=== PATIENT | female | born 1995 | race Caucasian/White ===

== ENCOUNTER 2016-10-03 12:24 | Emergency (ER) | payer OTHER ==
[~2016-10-03] VITALS: Ht 162.6 cm; Wt 90.7 kg
[~2016-10-03 12:24] MED LIST: ALBUTEROL1.25 MG/3 INH/SOL; AMOXIL 875 MG875 MG PO; BACTRIM DS 8001 TAB PO; DASETTA 1/35 351 TAB PO; DESOGESTREL PO; DIFLUCAN150 MG PO; ETHINYL ESTRADIOL PO; FLEXERIL10 MG PO; FLONASE ALLERG9.9 ML NAS; KEFLEX500 MG PO; MEDROL DOSEPAK1 PAC PO; MEDROL4 M2 PO; MOTRIN800 MG PO; NASONEX0.05 MG/Ac NS; NORTREL PO; NOVAPLUS V0.09 MG/Ac INH; PREDNISONE 20MG20 MG PO; PREDNISONE20 M1 PO; PYRIDIUM100 MG PO; ROBITUSSIN W/CO10 ML PO; TESSALON PERLE100 M1 PO; TESSALON PERLE100 MG PO; ZITHROMAX Z-PA250 M1 PO
[2016-10-03] MEDS ORDERED: LO LOESTRIN FE1 EACH PO (12:48)
--- NOTE | 2016-10-03 13:23 | ED HAND/WRIST INJURY COMPLAINT ---
History of Present Illness General Chief Complaint: Hand or Wrist Injury Stated Complaint: 4TH DIGIT ON LEFT HAND PAIN, S/P FALL Source: patient Exam Limitations: no limitations Vital Signs & Intake/Output Vital Signs & Intake/Output Vital Signs Date Time Temp Pulse Resp B/P B/P Pulse O2 O2 Flow FiO2 Mean Ox Delivery Rate 10/03 1342 98.7 90 20 130/80 98 Room Air 10/03 1228 98.4 99 18 129/87 98 Room Air Allergies Coded Allergies: NO KNOWN ALLERGIES (09/20/15) Reconcile Medications Hydrocodone/Acetaminophen (Hydrocodon-Acetaminophen 5-325) 5 MG-325 MG TABLET 1-2 TAB PO Q4-6 PRN PRN pain Ibuprofen 800 MG TABLET 1 TAB PO TID pain Norethindrone-E.estradiol-Iron (Lo Loestrin Fe 1-10 Tablet) 1MG-10(24) TABLET 1 TAB PO DAILY bc (Reported) Triage Note: 21 Y/O FEMALE C/O PAIN/SWELLING TO L 4TH FINGER S/P FALL TODAY. DENIES ANY OTHER INJURIES OR COMPLAINTS. Triage Nurses Notes Reviewed? yes Duration: day(s): (last night), constant, continues in ED Severity: moderate, severe Pain/Injury Location: Left: 4th finger. Method of Injury: fall No Modifying Factors: none : No Patient currently breastfeeds: No HPI: 21-year-old female comes into emergency room for further evaluation left forth finger pain. Patient fell. Came down on her left finger. Swelling /pain. Sharp pain. Continuous. Nonradiating. Denies any other associated symptoms. Past History Travel History Traveled to [place] past 21 day No Medical History Any Pertinent Medical History? see below for history Neurological: NONE EENT: NONE Cardiovascular: NONE Respiratory: asthma, bronchitis Gastrointestinal: NONE Hepatic: NONE Renal: NONE Musculoskeletal: NONE Psychiatric: NONE Endocrine: NONE Blood Disorders: NONE Cancer(s): NONE PATROL SERGEANT/Reproductive: NONE Surgical History Surgical History: non-contributory, N Psychosocial History What is your primary language Beninese Tobacco Use: Current Daily Use Daily Tobacco Use Amount/Type: => 5 Cigarettes daily Family History Hx Contributory? No Review of Systems Review of Systems Constitutional: Reports: no symptoms. EENTM: Reports: no symptoms. Respiratory: Reports: no symptoms. Cardiovascular: Reports: no symptoms. GI: Reports: no symptoms. Genitourinary: Reports: no symptoms. Musculoskeletal: Reports: see HPI. Skin: Reports: no symptoms. Neurological/Psychological: Reports: no symptoms. Hematologic/Endocrine: Reports: no symptoms. Immunologic/Allergic: Reports: no symptoms. All Other Systems: Reviewed and Negative Physical Exam Physical Exam General Appearance: well developed/nourished, mild distress Head: atraumatic Eyes: Bilateral: normal appearance. Ears, Nose, Throat: normal ENT inspection, hearing grossly normal Neck: normal inspection Cardiovascular/Respiratory: no respiratory distress Back: normal inspection Hand Left: bone tenderness, ecchymosis, swelling, tender, 4th finger Hand Right: normal inspection Neurologic/Tendon: normal sensation, normal motor functions, normal tendon functions, responds to pain, no evidence tendon injury, no pulse deficit Skin: intact, normal color, warm/dry Lymphatic: no anterior cervical jd Progress Differential Diagnosis: dislocation, felon, fracture, gout, paronychia, septic arthritis, sprain Plan of Care: Orders Procedure Date/time Status XRY-FINGERS, LEFT 10/03 1229 Active Diagnostic Imaging: Viewed by Me: Radiology Read. Discussed w/RAD: Radiology Read. Radiology Impression: SERVICE DATE: 10/03/16 EXAM TYPE: RAD - XRY-FINGERS , LEFT EXAMINATION: XR FINGER, LEFT CLINICAL INFORMATION: Pain and swelling status post fall. COMPARISON: None TECHNIQUE: A single view of the left hand and 2 views of the left fourth finger are provided. FINDINGS: There is an nondisplaced oblique fracture involving the [id number] shaft of the left fourth middle phalanx without evidence of intra-articular extension. IMPRESSION: Left fourth middle phalanx fracture. DICTATED BY: RICCI LIMON MD DATE/TIME DICTATED:10/03/161303 SHUTTLECOCK ASSEMBLER:RICHARD DATE/TIME TRANSCRIBED:1303 Departure Departure Disposition: HOME OR SELF CARE Condition: Stable Clinical Impression Primary Impression: Fracture of finger, middle phalanx, closed Referrals: UNKNOWN (PCP/Family) Additional Instructions: Take Vicodin and ibuprofen as prescribed. Follow-up with plastic surgeon provided. Stay in finger splint until follow-up. Return if any concerns worsening symptoms. Please go over all results of today's visit with your primary care doctor. Contact your primary care doctor to let them know you were here in the emergency room. There may be nonspecific findings which may not be related to your visit today here in the emergency room but may require further evaluation and chronic monitoring by your primary care doctor. If you had a laceration today the chance of foreign body always remains. You should follow-up with your primary care doctor for recheck in 3-5 days for a wound check. If you had an x-ray done there is a chance that a fracture could have been missed on initial read and you should follow-up with your primary care doctor for repeat x-rays if symptoms persist. If your blood pressure was elevated here in the emergency room please have rechecked by her primary care doctor within the next 48 hours by your primary care doctor. If you were prescribed a narcotic here in the emergency room or any type of controlled substances you're not allowed to drive while taking this medication or operate any type of heavy machinery. Narcotics can make you feel lightheaded dizziness nausea and can cause constipation. You may need to pecan picker a stool softener. Thank you for choosing [facility] emergency room. Please return to the emergency room immediately if you have any other concerns worsening of symptoms. Departure Forms: Customer Survey General Discharge Information Prescriptions: Current Visit Scripts Hydrocodone/Acetaminophen (Hydrocodon-Acetaminophen 5-325) 1-2 TAB PO Q4-6 PRN PRN pain #15 TAB Ibuprofen 1 TAB PO TID #30 TAB Comments 10/03/2016 2:15:27 PM Patient clinically looks well. Patient was referred to plastic surgery. Dr. Teixeira's information was handwritten down on the paperwork. Patient understands agrees with plan of care. Return if any other concerns. Procedures Splinting Location: left fourth finger Pre-Made Type: metal Splint: finger splint Splint Applied By: splint applied by me Pre-Proc Neuro Vasc Exam: normal Post-Proc Neuro Vasc Exam: normal
[2016-10-03] MEDS ORDERED: IBUPROFEN800 M1 PO (13:26)
[2016-10-03] MEDS ORDERED: HYDROCODON-ACE1 EAC2 PO (13:26)
--- NOTE | 2016-10-03 13:37 | RADIOLOGY REPORT ---
EXAMINATION: XR FINGER, LEFT CLINICAL INFORMATION: Pain and swelling status post fall. COMPARISON: None TECHNIQUE: A single view of the left hand and 2 views of the left fourth finger are provided. FINDINGS: There is an nondisplaced oblique fracture involving the [id number] shaft of the left fourth middle phalanx without evidence of intra-articular extension. IMPRESSION: Left fourth middle phalanx fracture.
[2016-10-03 13:42] VITALS: BP 130/80
== END 2016-10-03 13:42 ==
LOC: ERH 12:24
DX: S62.625A Displaced fracture of middle phalanx of left ring finger, initial encounter for closed fracture (principal); W19.XXXA Unspecified fall, initial encounter; Y92.9 Unspecified place or not applicable; Y93.9 Activity, unspecified
CPT/HCPCS: 73140-LT

== ENCOUNTER 2017-10-20 18:25 | Inpatient (IN) | payer OTHER ==
[~2017-10-20] VITALS: Ht 162.6 cm; Wt 92.7 kg
[~2017-10-20 18:25] MED LIST changes: +DASETTA 1-35-21 EACH PO; +DIAZEPAM5 M1 PO; +GABAPENTIN300 M2 PO; +HYDROCODON-ACE1 EAC2 PO; +IBUPROFEN800 M1 PO; +LO LOESTRIN FE1 EACH PO; +NICOTINE PATCH1 EAC2 TOP; +SERTRALINE HCL50 MG PO
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
[2017-10-21 02:46] LABS: ABSOLUTE BASOPHIL COUNT 0 /CUMM (0.0-0.2); ABSOLUTE EOSINOPHIL COUNT 0.1 /CUMM (0.0-0.7); ABSOLUTE GRANULOCYTE CT 3.6 /CUMM (1.4-6.5); ABSOLUTE LYMPH COUNT 3.4 /CUMM (1.2-3.4); ABSOLUTE MONOCYTE COUNT 0.6 /CUMM (0.10-0.60); BASOPHIL % 0.4 % (0.0-2.0); EOSINOPHIL % 1.5 % (0-5); GRANULOCYTE % 46.3 % (42.2-75.2); HEMATOCRIT 42.6 % (37-47); MEAN CORPUSCULAR HGB 29.7 PG (27.0-31.0); MEAN CORPUSCULAR HGB CONC 33.3 G/DL (33.0-37.0); MEAN PLATELET VOLUME 8.5 FL (7.4-10.4); PLATELET COUNT 267 /CUMM (130-400); RBC DISTRIBUTION WIDTH 14.5 % (11.5-14.5); RED BLOOD CELL CT 4.79 /CUMM (4.20-5.40); WHITE BLOOD CELL COUNT 7.8 /CUMM (4.8-10.8)
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
[2017-10-21 21:48] VITALS: BP 117/69
[2017-10-22] VITALS (7 sets, daily range): BP systolic 126–144; BP diastolic 83–94
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
--- NOTE | 2017-10-22 13:58 | History & Physical ---
General Information and HPI MD Statement: I have seen and personally examined KELECHI LAWRENCE and documented this H&P. The patient is a 22 year old F who presented with a patient stated chief complaint of [ suicidal ideation]. Source of Information: patient, EMS Exam Limitations: no limitations History of Present Illness: 22 yr old female with pmh of suidical ideation and attmept with last admission in Mar 2017 for suicidal attempt was brought to the ED for cuts to her left wrist which required sutures. Pt is [facility] for further management. Pt currently denies any suicidal ideation . Smokes cigs 1 PPD. Not willing to quit. Drinks alcohol occasionally. Denies any HTN, DM, HLD. Denies any sexually transmitted disease history. 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 FATHER (NONE). Psychosocial History Services at Home: None Primary Language: French ETOH Use: alcoholic Functional Ability Ambulation: independent Employment History Employment Employed Profession/Employer pt reports at [employer] Review of Systems Review of Systems Constitutional: Reports: see HPI. Denies: chills, fever. EENTM: Denies: eye pain. Cardiovascular: Denies: chest pain, palpitations. Respiratory: Denies: cough, short of breath. GI: Denies: abdominal pain. Genitourinary: Denies: dysuria. Musculoskeletal: Denies: back pain. Neurological/Psychological: Reports: see HPI. Exam & Diagnostic Data Last 24 Hrs of Vital Signs/I&O Vital Signs Date Time Temp Pulse Resp B/P B/P Pulse O2 O2 Flow FiO2 Mean Ox Delivery Rate 10/22 1226 99 144/89 10/22 1213 99 144/89 10/22 0732 97.0 96 126/83 10/21 2148 98.1 98 117/69 10/21 2055 97.2 93 18 125/69 97 10/21 1432 98.0 89 18 104/58 100 Room Air Intake & Output 10/22 1600 10/22 0800 10/22 0000 Intake Total Output Total Balance Patient 92.703 kg Weight Physical Exam General Appearance Alert, Oriented X3, Cooperative, No Acute Distress Skin Has cut on left wrist with sutures HEENT Atraumatic, EOMI Neck Supple Cardiovascular Regular Rate, Normal S1, Normal S2 Lungs Clear to Auscultation, Normal Air Movement Abdomen Soft, No Tenderness Neurological Exam Findings: Normal Gait, Normal Speech Cranial Nerves II through XII: INtact Extremities No Cyanosis, No Edema Assessment/Plan Assessment: Suicidla ideation and attempt- management as per psychiatry. Nicotine dependence- counselled pt to quit smoking. not motivated to quit at present. Cont nicotine patch. As Ranked By This Provider Problem List: 1. Suicidal behavior 2. Suicidal ideation 3. Self mutilating behavior 4. Laceration Miscellaneous Miscellaneous Documentation Attending Case Discussed With: Eva ARAYA,Guillaume Primary Care Physician: Jordyn Márquez APRN Patient sees these Specialists none Level of Patient Care: [facility]
--- NOTE | 2017-10-22 17:41 | SOCIAL WORKER PROG NOTE PSYCH ---
Social Work Progress Note Progress Note This pattern chart writer met with patient. She discussed events leading to admission in which she was drinking with friends and then took an unprescribed Xanax due to her anxiety. She stated that she cut herself to relieve the stress, however, adamently denies that it was a suicide attempt. Patient stated that she last cut when she was 15. Patient reported weekly alcohol use (3 beers each time) and MJ use of three times per week, "about a 1/2 a bowl each time." Patient stated that she does not feel she needs rehab. She stated that she is not interested in IOP due to her work schedule and would prefer individual therapy and medication management. She is agreeable to group therapy through [facility]. Patient denied SI/HI/AH/VH.
[2017-10-23] VITALS (7 sets, daily range): BP systolic 124–144; BP diastolic 66–79
--- NOTE | 2017-10-23 10:20 | SOCIAL WORKER PROG NOTE PSYCH ---
Social Work Progress Note Progress Note The services requested require additional review. You will be contacted regarding the status of this request if further information is needed. An authorization decision will be made within the required timeframes and details of that decision may be found under the member's authorization history. Member Name Member ID Member Subscriber Name Subscriber ID KELECHI LAWRENCE [id number] 1995 KELECHI LAWRENCE [id number] Pended Authorization # Client Authorization # Type of Request [id number] CONCURRENT Date of Admission/ Start of Services Requested From Submission Date 10/21/2017 10/24/2017 10/23/2017 Level of Service Type of Service Level of Care Type of Care INPATIENT/HLOC Mental Health Inpatient Inpatient [facility] - Inpatient Hospital Reason Code P76 Provider Name & Address Provider ID Provider Alternate ID NPI # for Authorization TANI LEVIN [id number] N/A [address] [facility] [id number]
--- NOTE | 2017-10-23 15:40 | CP SOUTH PROGRESS NOTE PSYCH ---
Psych (Inpt) Progress Note Progress Note Include the following elements, when applicable: Involvement in the active treatment of the patient with behavioral observations of the patient and the patient's response to the treatment. Review of the ongoing treatment process in the context of the treatment plan. Indication of how multi-disciplinary staff members are carrying out the treatment plan. Plans for future interventions and recommendations for revision of the treatment plan. Liaison with other physicians/providers. Progress Note: Case and treatment plan discussed in team meeting. Staff reports that the patient is denying suicidal ideation. Described as chatty. Socializes with a male peer. Minimizes. Patient seen at 10:42 AM. She was in group prior to meeting with me in office. States "I'm pretty good." Reports there has been no change and states she is still happy and is feeling good. Reports she had a nice visit with her mother and mother's visit made her feel better. Patient wants consistent outpatient therapy. She is optimistic about it. Affect is calm and euthymic. Reports mood is really good. Rates sad mood and anxiety both 0/10 but she reports that she misses cigarettes. Denies feeling hopeless, helpless, worthless or guilty. Denies active and passive suicidal ideation. Denies homicidal ideation. Denies auditory and visual hallucinations and paranoid ideation. States she slept well but claims she is drinking too much coffee. Reports appetite is good and energy is good. Tolerating medications well. I advised her that it will take weeks for Zoloft to become fully effective. IMPRESSION: Slow progress. Continue present treatment plan. A family meeting will be important. Hopefully patient will agree to go to an IOP. Anticipate likely discharge by Thursday next week.
--- NOTE | 2017-10-23 18:06 | SOCIAL WORKER PROG NOTE PSYCH ---
Social Work Progress Note Progress Note This copy writer met with patient. She reported "good" mood and denied SI/HI/AH/VH. Patient maintains interest in individual therapy and, upon reviewing a list of providers, she signed an JO-ANN for [facility] as their location is convenient for her. Patient was also agreeable to a family meeting with her mother. We called her mother and a meeting is scheduled for 10/26/17 at 2pm. This copy writer has also left a vm for [facility] inquiring about their referral process. A call back number was provided. As discussed with the patient yesterday and the treatment team, a OPS appointment will be scheduled for intake, medication management and her interest in outpatient group therapy.
[2017-10-24] VITALS (7 sets, daily range): BP systolic 121–138; BP diastolic 70–78
--- NOTE | 2017-10-24 11:36 | CP SOUTH PROGRESS NOTE PSYCH ---
Psych (Inpt) Progress Note Progress Note Include the following elements, when applicable: Involvement in the active treatment of the patient with behavioral observations of the patient and the patient's response to the treatment. Review of the ongoing treatment process in the context of the treatment plan. Indication of how multi-disciplinary staff members are carrying out the treatment plan. Plans for future interventions and recommendations for revision of the treatment plan. Liaison with other physicians/providers. Progress Note: Pt notes good mood today. She had some difficulties with sleep as near the RN station but feels that wants no change in sleep meds. Feeling hopeful about the future. Denies SI or HI. No issues with sertraline 50mg. Current Medications Sig/Sayra Start time Last Medication Dose Route Stop Time Status Admin Acetaminophen 650 MG Q6P PRN 10/22 1045 AC PO Al Hydroxide/Mg 30 ML Q4-6 PRN PRN 10/22 1045 AC Hydroxide PO Benztropine Mesylate 1 MG Q6P PRN 10/22 1045 AC PO Benztropine Mesylate 1 MG Q6P PRN 10/22 1045 AC IM Folic Acid 1 MG DAILY 10/22 1152 DC 10/24 PO 10/24 0901 1047 Gabapentin 300 MG Q6P PRN 10/22 1045 AC PO Haloperidol 5 MG Q6P PRN 10/22 1045 AC PO Haloperidol 5 MG Q6P PRN 10/22 1045 AC IM Lorazepam 2 MG Q2P PRN 10/22 1200 AC PO Lorazepam 1 MG Q2P PRN 10/22 1200 AC PO Lorazepam 2 MG Q6P PRN 10/22 1045 AC IM Magnesium Hydroxide 30 ML AT BEDTIME PRN 10/22 1045 AC PO Multivitamins 1 TAB DAILY 10/22 1152 AC 10/24 PO 1047 Nicotine 21 MG DAILY 10/24 1113 AC TOP Nicotine 14 MG DAILY 10/22 1038 DC 10/24 TOP 1047 Patient Own 1 UNIT DAILY 10/23 0900 AC 10/24 Medication PO 1048 Sertraline HCl 100 MG DAILY 10/25 0900 AC PO Sertraline HCl 50 MG DAILY 10/22 1439 DC 10/24 PO 1047 Thiamine HCl 100 MG DAILY 10/22 1152 DC 10/24 PO 10/24 0901 1047 Trazodone HCl 50 MG AT BEDTIME NEED.. 10/22 1045 AC PO Vital Signs Date Time Temp Pulse Resp B/P B/P Pulse O2 O2 Flow FiO2 Mean Ox Delivery Rate 10/25 755 97.5 84 125/73 10/24 0755 97.3 84 125/73 10/23 1940 97.7 70 144/66 10/23 1558 75 124/68 10/23 1557 75 124/68 10/23 1226 76 131/76 10/23 1225 76 131/76 MSE General appearance: good hygiene and grooming; Attitude: cooperative; Eye contact: appropriate; Movement: no psychomotor agitation or slowing; Speech: nl fluency, nl rate/rhythm, nl volume, nl prosody; Mood: "good" Affect: very slightly irritable, flat, appropriate, constricted, non-labile, congruent; Thought process: linear and goal-directed; Thought content: denied SI or HI, no paranoid ideation; Perception: denied hallucinations- auditory, visual, does not appear to be responding to internal stimuli; I/J: limited A/P: Pt with Bipolar disorder, PTSD with improving mood. - Increase sertraline to 100mg daily -Continue current medication regimen -Encourage integration into the milieu
[2017-10-25 07:45] VITALS: BP 122/81
[2017-10-25 07:53] VITALS: BP 122/81
--- NOTE | 2017-10-25 11:48 | CP SOUTH PROGRESS NOTE PSYCH ---
Psych (Inpt) Progress Note Progress Note Include the following elements, when applicable: Involvement in the active treatment of the patient with behavioral observations of the patient and the patient's response to the treatment. Review of the ongoing treatment process in the context of the treatment plan. Indication of how multi-disciplinary staff members are carrying out the treatment plan. Plans for future interventions and recommendations for revision of the treatment plan. Liaison with other physicians/providers. Progress Note: Pt notes poor sleep today. Does not like her roomate. She denies SI or HI. Very irritable today. Current Medications Sig/Sayra Start time Last Medication Dose Route Stop Time Status Admin Acetaminophen 650 MG Q6P PRN 10/22 1045 AC PO Al Hydroxide/Mg 30 ML Q4-6 PRN PRN 10/22 1045 AC Hydroxide PO Benztropine Mesylate 1 MG Q6P PRN 10/22 1045 AC PO Benztropine Mesylate 1 MG Q6P PRN 10/22 1045 AC IM Gabapentin 300 MG Q6P PRN 10/22 1045 AC PO Haloperidol 5 MG Q6P PRN 10/22 1045 AC PO Haloperidol 5 MG Q6P PRN 10/22 1045 AC IM Lorazepam 2 MG Q2P PRN 10/22 1200 DC PO Lorazepam 1 MG Q2P PRN 10/22 1200 DC PO Lorazepam 2 MG Q6P PRN 10/22 1045 AC IM Magnesium Hydroxide 30 ML AT BEDTIME PRN 10/22 1045 AC PO Multivitamins 1 TAB DAILY 10/22 1152 AC 10/25 PO 0759 Nicotine 21 MG DAILY 10/24 1113 AC 10/25 TOP 0800 Patient Own 1 UNIT DAILY 10/23 0900 AC 10/25 Medication PO 0800 Sertraline HCl 100 MG DAILY 10/25 0900 AC 10/25 PO 0800 Trazodone HCl 50 MG AT BEDTIME NEED.. 10/22 1045 AC PO Vital Signs Date Time Temp Pulse Resp B/P B/P Pulse O2 O2 Flow FiO2 Mean Ox Delivery Rate 10/25 0753 98.1 79 122/81 10/25 0745 98.1 79 122/81 10/25 2015 98.3 82 16 121/70 10/24 2009 98.3 82 121/70 10/24 1604 75 131/77 10/24 1554 75 131/77 10/24 1223 99 138/78 MSE General appearance: good hygiene and grooming; Attitude: cooperative; Eye contact: appropriate; Movement: no psychomotor agitation or slowing; Speech: nl fluency, nl rate/rhythm, nl volume, nl prosody; Mood: "terrible " Affect: extremely irritable, flat, appropriate, constricted, non-labile, congruent; Thought process: linear and goal-directed; Thought content: denied SI or HI, no paranoid ideation; Perception: denied hallucinations- auditory, visual, does not appear to be responding to internal stimuli; I/J: limited A/P: Pt with Bipolar disorder, PTSD with improving mood overall though with increased irritable today around interpersonal discord with roomate. -Continue current medication regimen -Encourage integration into the milieu
[2017-10-25 12:25] VITALS: BP 136/79
[2017-10-25 15:45] VITALS: BP 137/89
[2017-10-25 19:51] VITALS: BP 132/79
[2017-10-26 07:35] VITALS: BP 133/88
[2017-10-26 12:13] VITALS: BP 128/86
--- NOTE | 2017-10-26 12:29 | CP SOUTH PROGRESS NOTE PSYCH ---
Psych (Inpt) Progress Note Progress Note Include the following elements, when applicable: Involvement in the active treatment of the patient with behavioral observations of the patient and the patient's response to the treatment. Review of the ongoing treatment process in the context of the treatment plan. Indication of how multi-disciplinary staff members are carrying out the treatment plan. Plans for future interventions and recommendations for revision of the treatment plan. Liaison with other physicians/providers. Progress Note: I discussed this patient's progress to date, current mental status, treatment process in the context of the treatment plan, and discharge planning with staff/ team in the daily morning inpatient team meeting. I also met with the patient myself in individual session. A total of 25 minutes was spent with the patient with more than 50% spent in counseling and/or coordination of care. SUBJECTIVE: "I'm optimistic. Everything is great with me and my mother, we're going to move in with my aunt in [place]. She is in a wheelchair, so we will be able to help her. I didn't try to kill myself. I was just being emotional, stupid, messed up and erratic." OBJECTIVE: Current Medications Sig/Sayra Start time Last Medication Dose Route Stop Time Status Admin Acetaminophen 650 MG Q6P PRN 10/22 1045 AC PO Al Hydroxide/Mg 30 ML Q4-6 PRN PRN 10/22 1045 AC Hydroxide PO Benztropine Mesylate 1 MG Q6P PRN 10/22 1045 AC PO Benztropine Mesylate 1 MG Q6P PRN 10/22 1045 AC IM Gabapentin 300 MG Q6P PRN 10/22 1045 AC PO Haloperidol 5 MG Q6P PRN 10/22 1045 AC PO Haloperidol 5 MG Q6P PRN 10/22 1045 AC IM Lorazepam 2 MG Q6P PRN 10/22 1045 AC IM Magnesium Hydroxide 30 ML AT BEDTIME PRN 10/22 1045 AC PO Multivitamins 1 TAB DAILY 10/22 1152 AC 10/26 PO 0934 Nicotine 21 MG DAILY 10/24 1113 AC 10/26 TOP 0934 Patient Own 1 UNIT DAILY 10/23 0900 AC 10/26 Medication PO 0934 Sertraline HCl 100 MG DAILY 10/25 0900 AC 10/26 PO 0934 Trazodone HCl 50 MG AT BEDTIME NEED.. 10/22 1045 AC 10/26 PO 0124 Vital Signs Date Time Temp Pulse Resp B/P B/P Pulse O2 O2 Flow FiO2 Mean Ox Delivery Rate 10/26 1213 94 128/86 10/26 0735 97.7 92 133/88 10/25 1951 98.0 78 132/79 10/25 1545 77 137/89 10/25 1225 91 136/79 ASSESSMENT: This is my first time visiting with this patient who presents as calm, pleasant and cooperative. States that she is doing well, feels that she is ready to leave the hospital. Tolerating her medications well, to good effect Depression:08/15; Anxiety: "Depends on the situation." (with 10 the worst.) Denies suicidal ideation, homicidal ideation, auditory hallucinations, visual hallucinations, paranoid ideation. Patient states and also believes that she will not kill herself. Patient reports that she generally sleeps very well, only taking trazodone to help with sleep while she is in the hospital. She said her appetite, energy, interest are all good. Her concentration is at her baseline, however states that in general she has problems concentrating. Speech is well articulated, goal-directed, average in rate, volume and tone. The patient understands the risks/benefits/side effects of the medication and is agreeable to continue taking them. PLAN: 1. We discussed the benefits of attending an IOP program. Patient has agreed to attend IOP after discharge. 2. Family meeting with mother scheduled for today. Continue with current management as patient is improving. Continue to provide support and encouragement.
[2017-10-26 15:38] VITALS: BP 133/87
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
[2017-10-26 19:45] VITALS: BP 136/84
[2017-10-27 07:51] VITALS: BP 134/78
[2017-10-27] MEDS ORDERED: NICOTINE PATCH1 EAC3 TOP (08:25)
[2017-10-27] MEDS ORDERED: ZOLOFT100 M1 PO (08:25)
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
--- NOTE | 2017-10-27 09:10 | CP SOUTH PROGRESS NOTE PSYCH ---
Psych (Inpt) Progress Note Progress Note Include the following elements, when applicable: Involvement in the active treatment of the patient with behavioral observations of the patient and the patient's response to the treatment. Review of the ongoing treatment process in the context of the treatment plan. Indication of how multi-disciplinary staff members are carrying out the treatment plan. Plans for future interventions and recommendations for revision of the treatment plan. Liaison with other physicians/providers. Progress Note: I discussed this patient's progress to date, current mental status, treatment process in the context of the treatment plan, and discharge planning with staff/ team in the daily morning inpatient team meeting. I also met with the patient myself in individual session. A total of 15 minutes was spent with the patient with more than 50% spent in counseling and/or coordination of care. SUBJECTIVE: "I don't need trazodone at home. I sleep perfectly at home." OBJECTIVE: Current Medications Sig/Sayra Start time Last Medication Dose Route Stop Time Status Admin Acetaminophen 650 MG Q6P PRN 10/22 1045 AC PO Al Hydroxide/Mg 30 ML Q4-6 PRN PRN 10/22 1045 AC Hydroxide PO Benztropine Mesylate 1 MG Q6P PRN 10/22 1045 AC PO Benztropine Mesylate 1 MG Q6P PRN 10/22 1045 AC IM Gabapentin 300 MG Q6P PRN 10/22 1045 AC PO Haloperidol 5 MG Q6P PRN 10/22 1045 AC PO Haloperidol 5 MG Q6P PRN 10/22 1045 AC IM Lorazepam 2 MG Q6P PRN 10/22 1045 AC IM Magnesium Hydroxide 30 ML AT BEDTIME PRN 10/22 1045 AC PO Multivitamins 1 TAB DAILY 10/22 1152 AC 10/27 PO 0814 Nicotine 21 MG DAILY 10/24 1113 AC 10/26 TOP 0934 Patient Own 1 UNIT DAILY 10/23 09 AC 10/27 Medication PO 0814 Sertraline HCl 100 MG DAILY 10/25 0900 AC 10/27 PO 0814 Trazodone HCl 50 MG AT BEDTIME NEED.. 10/22 1045 AC 10/26 PO 2237 Vital Signs Date Time Temp Pulse Resp B/P B/P Pulse O2 O2 Flow FiO2 Mean Ox Delivery Rate 10/27 0751 96.1 92 134/78 10/26 1945 98.4 81 136/84 10/26 1538 83 133/87 10/26 1213 94 128/86 ASSESSMENT: Patient reports doing well, offers no complaints today. Presents today as calm and cooperative. Euthymic mood and affect. States that her mother already had her bed moved to her aunt's house in [place], and she is looking forward to moving in with her mother and aunt. Depression:0/10; Anxiety:0/10 (with 10 the worst.) Denies suicidal ideation, homicidal ideation, auditory hallucinations, visual hallucinations, paranoid ideation. States and also believes that she will not kill herself. States she's having no thoughts of self harm or cutting. Appetite, energy, interest are reported to be normal. His concentration is at her baseline, "always a little off." Speech is well articulated, goal-directed, average in rate, volume and tone. The patient understands the risks/benefits/side effects of the medication and is agreeable to continue taking them. PLAN: 1. Discharge today. 2. As per HOD Dr. Robertson, patient should return to ER in 3 days to have zheng on left wrist removed. 3. [facility] IOP intake today at 1315, immediatley upon inpatient discharge. Continue with current management as patient is improving. Continue to provide support and encouragement.
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
[2017-10-27 12:04] VITALS: BP 120/70
--- NOTE | 2017-10-27 18:43 | SOCIAL WORKER PROG NOTE PSYCH ---
Social Work Progress Note Progress Note This short story writer met with patient informing of the IOP intake scheduled for today at 1:15pm. She was also informed of the smoking cessation group. Patient accepted. She stated that she did not have any other appointments or referrals that need to be made. Patient confirmed that she will be staying with her aunt in [place] as of tonight and that her belongings are en route to the aunt's home. Therefore, she does not need to return to her home tonight. She denied SI/HI/AH/VH and confirmed the safety plan to call her mother and utilize the crisis numbers and warm line numbers. Patient and this short story writer called her mother and left a vm informing of the discharge plan and intake appointment. A call back number for this short story writer was provided and stated that the patient would call her. Patient later informed this short story writer that she spoke with her mother and that her mother will provide transportation following the IOP intake today. Faxed Referral(s) Referred To: [facility] Transition of Care Documents sent: Health Summary Faxed to: [facility] Fax #: [phone] Faxed by: Rodolfo Price LCSW Date faxed: 10/27/17 Time Faxed: [phone]
--- NOTE | 2017-10-28 11:09 | SOCIAL WORKER PROG NOTE PSYCH ---
Social Work Progress Note Progress Note Faxed Transfer to [facility] 10/28/17 at 11:10am.
== END 2017-10-27 13:15 | DRG 881 ==
LOC: ERH 18:25 → CP SOUTH 10-21 20:36 → ERHI 10-21 20:36 → ENTRNSPT 10-21 21:24 → EDTRNSPTSTS 10-21 21:31 → EDTRNSPT 10-21 21:31 → CP SOUTH 10-21 21:37 → CMPTRNSPT 10-21 21:41 → ENRESERV 10-21 23:59 → CP SOUTH 10-23 10:08
PROVIDERS: Physician Assistant Medical
DX: F32.9 Major depressive disorder, single episode, unspecified (principal); F12.90 Cannabis use, unspecified, uncomplicated; F41.9 Anxiety disorder, unspecified; F13.90 Sedative, hypnotic, or anxiolytic use, unspecified, uncomplicated
CPT/HCPCS: 80307; 81001; 81025; 90714; 96372; 96374; G0480; J1200; J1630; J3490